=== PATIENT | female | born 1960 | race Caucasian/White ===

== ENCOUNTER 2023-12-25 06:36 | Day surgery (SDC) | payer BC, SELFPAY ==
--- NOTE | 2023-12-24 16:36 | PTCARENOTE ---
Dr. Pereira made aware no EKG ordered by surgeon, will review and order if needed.
[2023-12-25] VITALS (7 sets, daily range): BP systolic 102–127; BP diastolic 42–75; BMI 23.0
[2023-12-25] MEDS: Pyridium 200 MG PO (12:02)
== END 2023-12-25 16:45 | disposition home or self-care (01) ==
LOC: SDS 06:36
PROVIDERS: ATTENDING PHYSICIAN Obstetrics & Gynecology
DX: N39.3 Stress incontinence (female) (male) (principal); N36.41 Hypermobility of urethra
CPT/HCPCS: 57288; C1771; J1580

== ENCOUNTER 2024-01-14 13:31 | Emergency (ER) | payer BC, SELFPAY ==
[2024-01-14 13:31] VITALS: BMI 22.2
[2024-01-14 13:32] VITALS: BP 157/94
[2024-01-14] MEDS: NSS 1000 IV (14:41)
[2024-01-14] MEDS: OMNIPAQUE 50 ML PO (14:41)
[2024-01-14 14:44] VITALS: BP 120/84
[2024-01-14 14:57] LABS: % Basophils 0.8 % (0-2); % Immature Granulocytes 2.7 % (0-0.5); % Lymphocytes 13.6 % (20.5-51.1); % Monocytes 7.3 % (1.7-9.3); % Neutrophils 73.6 % (42.2-75.2); Absolute Basophils 0.1 10^3/uL (0-0.2); Absolute Eosinophils 0.2 10^3/uL (0-0.7); Absolute Immature Granulocytes 0.3 10^3/uL (0-0.05); Absolute Lymphocytes 1.3 10^3/uL (1.2-3.4); Absolute Monocytes 0.7 10^3/uL (0.1-0.6); Hematocrit 36.7 % (37.0-47.0); Hemoglobin 12.7 g/dL (12.0-16.0); Mean Corp Hgb Conc. 34.6 g/dL (33.0-37.0); Mean Corpuscular Hgb 30.2 pg (27.0-31.0); Mean Corpuscular Volume 87.4 fL (81.0-99.0); Mean Platelet Volume 8.9 fL (7.4-10.4); Nucleated Red Blood Cells % 0 %; Platelet Count 285 10^3/uL (130-400); Red Cell Dist. Width 12.1 % (11.5-14.5); White Blood Cell Count 9.5 10^3/uL (4.8-10.8)
[2024-01-14 15:12] LABS: Urine Albumin Negative (Neg - Trace); Urine Bilirubin Negative (Negative); Urine Character Clear (Clear); Urine Color Yellow; Urine Glucose Negative (Negative); Urine Ketone Negative (Negative); Urine Leukocyte Trace (Negative); Urine Nitrite Negative (Negative); Urine Occult Blood Negative (Negative); Urine Specific Gravity 1.015 (<1.030); Urine Urobilinogen Negative (Neg - 1+)
[2024-01-14 15:19] LABS: Urine Squamous Cell 16-20 /LPF (Few); Urine Urothelial Cell 0-2 /LPF (FEW)
[2024-01-14 15:21] LABS: Urine Red Blood Cell 0-2 /HPF (0-2); Urine White Cell 0-2 /HPF (0-5)
[2024-01-14 15:23] LABS: ALT (SGPT) 11 U/L (0-35); AST (SGOT) 22 U/L (14-36); Alkaline Phosphatase 93 U/L (38-126); Blood Urea Nitrogen 5 mg/dl (7-17); Carbon Dioxide 24 mmol/L (22-30); Chloride 104 mmol/L (98-107); Estimated Creatinine Clearance 54 ml/min; Glucose 94 mg/dl (70-99); Potassium 4.3 mmol/L (3.5-5.1); Sodium 134 mmol/L (135-145); Total Bilirubin 0.5 mg/dl (0.2-1.3); Total Protein 6.4 g/dl (6.3-8.2); eGFR 57.17
--- NOTE | 2024-01-14 15:36 | ED.GENMED ---
History of Present Illness
General
Chief Complaint: Abdominal Pain
Source: patient
Exam Limitations: none
Time Seen by Provider: 01/14/24 14:06
Nursing documentation reviewed up to this point in time: agreed with
Travel History
Have you had any contact with someone who has COVID-19?: No
Do you have any symptoms of coronavirus? Fever > 100 degrees, chills, cough, shortness of breath, sore throat, loss of taste or smell, muscle aches, or headache?: No
History of Present Illness
History of Present Illness:
63-year-old female is here for right lower abdominal pain, diarrhea, gas and poor appetite.
She had a retropubic mid urethral sling placed [address] Ng[address] She saw him 4 days ago with the symptoms and he recommended Gas-X and probiotics which she has been taking but with no relief. She states she gets severe crampy gassy pains
and then has diarrheal stools which are nonbloody, mucous and yellow-colored.
Denies f/c/n/v.
She told triage she has hx of diverticulitis but in further conversation she was never treated for it, she said after her colonoscopy 10 years ago was told she has diverticulitis. Most likely mixed it up with diverticulosis. She's had no episodes
diverticulitis.
Past History
Past History
ED Past Medical History: Other (Chronic neck and back pain, fibromyalgia, basal cell skin CA)
ED Past Surgical History: Orthopedic
Social History
Tobacco: Non-smoker
Alcohol: Occasional
Personal:
Living: with family
Family History
Family History: Negative Diabetes, Hypertension, Early CAD, Asthma or Cancer
Review of Systems
Review of Systems
Allergies reviewed?: Yes
All Other Systems: ROS reviewed and negative except as documented in HPI and ROS
Constitutional: Denies fever or chills
Respiratory: Denies trouble breathing
Cardiac: Denies chest pain
ABD/GI: Reports abdominal pain, diarrhea and anorexia; Denies nausea, vomiting, bloody stools or black stools
: Denies dysuria, flank pain, difficulty voiding or urgency
Musculoskeletal: Reports no symptoms
Skin: Reports no symptoms
Neurological: Reports no symptoms
Phy Exam
Physical Exam
Physical Exam:
GENERAL: No acute distress. A&Ox3.
CONSTITUTIONAL: Afebrile.
EYES: clear, conjunctivae normal
ENMT: moist mucus membranes, Pharynx nl
RESPIRATORY: Regular respirations, nonlabored, lungs clear.
CARDIOVASCULAR: Regular rate and rhythm, no murmurs, no rubs.
GI: Soft, nontender, hyperactive BS
MUSCULOSKELETAL: Moves with ease. Well perfused.
SKIN: Warm, dry, pink
PSYCH: Normal mood and affect. Well kept, interactive and appropriate
NEUROLOGIC: Awake, alert and oriented. No focal neurological deficits
Course
Orders/Labs/Results
Orders:
Orders
01/14/24 14:06
0.9% Sodium Chloride 1000 ml [Nss] 1,000 ml IV BOLUS
Iohexol [Omnipaque] See Protocol PO NOW STA
01/14/24 14:07
CT Abd/pel W Iv And Oral Contr Urgent
Comment:
Reason For Exam: Retropubic mid urethral sling 3 w ago, now ab pain
01/14/24 14:31
Complete Blood Count/With Diff Urgent
Comprehensive Metabolic Panel Urgent
Lipase Urgent
Comment: ADD ON
01/14/24 14:56
Urinalysis Reflex To Culture Urgent
Date Specimen was Collected: 01/14/24
Time Specimen was Collected: 14:49
Urine Microscopic Reflex Cult Urgent
01/14/24 16:43
STOOL [C difficile Antigen & Toxins] Urgent
FERNY Source: Feces/Stool
Specimen Description:
Date Specimen was Collected: 01/14/24
Time Specimen was Collected: 16:40
Stool Culture Urgent
FERNY Source: Feces/Stool
Specimen Description:
Date Specimen was Collected: 01/14/24
Time Specimen was Collected: 16:40
01/14/24 16:49
Add On- LAB Urgent
Tests Added?: Lipase
01/14/24 17:52
Vancomycin HCl [Firvanq] 125 mg PO NOW STA
Abnormal Lab Results
01/14/24 01/14/24
14:31 14:56
Hct 36.7 L %
(37.0-47.0)
Abs Immat Gran (auto) 0.3 H 10^3/uL
(0-0.05)
Absolute Neuts (auto) 7.0 H 10^3/uL
(1.4-6.5)
Absolute Monos (auto) 0.7 H 10^3/uL
(0.1-0.6)
Immature Gran % 2.7 H %
(0-0.5)
Lymphocytes % 13.6 L %
(20.5-51.1)
Sodium 134 L mmol/L
(135-145)
BUN 5 L mg/dl
(7-17)
Creatinine 1.1 H mg/dL
(0.6-1.0)
Lipase 980 H U/L
(23-300)
Leukocyte Esterase Rfl Trace A
(Negative)
01/14/24 14:31
01/14/24 14:31
Vital Signs
Initial and Last Documented VS:
Initial Vital Signs
Temp Pulse Resp BP Pulse Ox
98.1 F 84 16 157/94 98
01/14/24 13:32 01/14/24 13:32 01/14/24 13:32 01/14/24 13:32 01/14/24 13:32
Last Documented Vital Signs
Temp Pulse Resp BP Pulse Ox
98.1 F 68 16 135/78 99
01/14/24 13:32 01/14/24 17:57 01/14/24 17:57 01/14/24 17:57 01/14/24 17:57
MDM/Problems Addressed
Differential Diagnosis Includes:
Diverticulitis, appendicitis, colitis, C. difficile
MDM/Problems Addressed:
63-year-old female is here for right lower abdominal pain, diarrhea, gas and poor appetite.
She had a retropubic mid urethral sling placed [address] Ng. She saw him 4 days ago with the symptoms and he recommended Gas-X and probiotics which she has been taking but with no relief. She states she gets severe crampy gassy pains
and then has diarrheal stools which are nonbloody, mucous and yellow-colored.
Denies f/c/n/v.
She told triage she has hx of diverticulitis but in further conversation she was never treated for it, she said after her colonoscopy 10 years ago was told she has diverticulitis. Most likely mixed it up with diverticulosis. She's had no episodes
diverticulitis.
Afebrile, NAD
01/14/2024 1549 PM
CBC with no clinically significant abnormality
CMP normal
UA unremarkable
Pt had two liquid brown stools
Cdiff and stool culture pending
Pt remains comfortable
01/14/2024 1737 PM
Stool is C. difficile toxigenic positive
CT abdomen pelvis with p.o. and IV contrast radiology report read: IMPRESSION: Diffuse colonic wall thickening, compatible with colitis. This most likely represents infectious colitis, with main differential consideration of inflammatory bowel
disease/ulcerative colitis.
The appendix appears normal. There is no evidence of free intraperitoneal air.
3 small low-density lesions within the liver as described, too small to characterize, but statistically likely represent small hemangiomata. No further imaging follow-up is felt to be needed.
Bony degenerative changes as described
Rx for vancomycin sent to her pharmacy
Pt is stable in NAD, ambulating well. Stable for discharge.
*Critical Care Note
Total Time (30-74mins, 75-104mins- exclusive of procedures): Not Applicable
ED Attending Note
-
Portions of this chart may have been created with voice recognition software.� Occasional wrong word or��sound alike� substitutions may have occurred due to the inherent limitations of voice recognition software.
Discharge Plan
Departure
Patient Disposition: Home (Routine Discharge)
Date of Disposition: 01/14/24
Time of Disposition: 17:51
Patient with high blood pressure during this ER visit?: No
Condition: Good
Discharge Problem:
C. difficile colitis
Instructions: Clostridioides difficile (DC), Colitis (DC)
Prescriptions:
New
vancomycin 125 mg capsule
125 mg PO QID Qty: 40 0RF
No Action
gabapentin 600 mg Tablet
600 mg PO TID
tramadol 200 mg Tablet Extended Release 24 Hr
200 mg PO DAILY
omeprazole 20 mg Tablet,Delayed Release (Dr/Ec)
20 mg PO DAILY
cholecalciferol (vitamin D3) [Vitamin D3] 50 mcg (2,000 unit) Tablet
50 mcg PO DAILY
Gemtesa 75 mg Tablet
75 mg PO DAILY
duloxetine [Cymbalta] 60 mg Capsule,Delayed Release(Dr/Ec)
60 mg PO DAILY
Referrals:
GI, Doctor Tom [Other] - Call in 1-3 days for appt
Gaye Haji MD [Family Provider] -
Activity Restrictions/Additional Instructions:
As we discussed, you have C diff colitis.
I sent a prescription to your pharmacy for Vancomycin to take 125 mg 4 times a day for 10 days
Call you GI doctor and make follow up appointment
Return here immediately for bloody stools, fever/chills, worsening abdominal pain or feeling sicker in any way.
Interventions
Interventions:
*Risk Screen - Suicide Last Done: 01/14/24 13:32
*General Assessment Last Done: 01/14/24 13:32
*Neglect/Abuse Screening Last Done: 01/14/24 13:32
ED- Fall Risk Assessment Last Done: 01/14/24 17:57
*ED COVID-19 Vaccine History Last Done: 01/14/24 14:29
*Nursing Disposition Last Done: 01/14/24 17:58
MS-Oluhtu-Sodrqrgdtx Assessment Last Done: 01/14/24 14:43
Discharge Date and Time
Discharge Date/Time: 01/14/24 18:13
[2024-01-14 16:10] VITALS: BP 144/83
[2024-01-14 17:34] LABS: Lipase 980 U/L (23-300)
[2024-01-14 17:57] VITALS: BP 135/78
[2024-01-14] MEDS: FIRVANQ 125 MG PO (18:11)
== END 2024-01-14 18:13 | disposition home or self-care (01) ==
LOC: EMR 13:31
PROVIDERS: Registered Nurse; EMERGENCY PHYSICIAN Emergency Medicine; FAMILY PHYSICIAN Internal Medicine
DX: A04.72 Enterocolitis due to Clostridium difficile, not specified as recurrent (principal); D13.4 Benign neoplasm of liver; Z82.49 Family history of ischemic heart disease and other diseases of the circulatory system
CPT/HCPCS: 99284; 96360; 74177; 80053; 81003; 81015; 83690; 85025; 87045; 87046; 87324; 87427; 87449; Q9967

== ENCOUNTER → 2024-10-03 11:08 | Outpatient (REF) | payer BC, SELFPAY | LOC: WDC 11:08 | PROVIDERS: ATTENDING PHYSICIAN Obstetrics & Gynecology Gynecology; FAMILY PHYSICIAN Internal Medicine Rheumatology | DX: Z12.31 Encounter for screening mammogram for malignant neoplasm of breast (principal) | CPT/HCPCS: 77063; 77067 ==

== ENCOUNTER → 2025-10-08 10:58 | Outpatient (REF) | payer BC, SELFPAY | LOC: WDC 10:58 | PROVIDERS: ATTENDING PHYSICIAN Obstetrics & Gynecology Gynecology; FAMILY PHYSICIAN Internal Medicine | DX: Z12.31 Encounter for screening mammogram for malignant neoplasm of breast (principal) | CPT/HCPCS: 77063; 77067 ==